=== PATIENT | male | born 1950 | race Caucasian/White ===

== ENCOUNTER 2016-05-22 09:16 | Inpatient (IN) | payer MEDICARE ==
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
[2016-05-22] MEDS ORDERED: Albuterol/Ipratropium Neb 3 ML AERS HHN ONE ×2 (09:58→10:12)
[2016-05-22 10:12] LABS: % BASOPHILS 1.3 % (0.0-2.0); % EOSINOPHILS 0.4 % (0.0-5.0); % LYMPHOCYTES 18.4 % (20.0-50.0); % MONOCYTES 7.9 % (2.0-10.0); HEMATOCRIT 38.4 % (39.0-49.0); HEMOGLOBIN 12.7 gm/dL (12.6-17.4); MEAN CELL VOLUME 83.8 fl (80-99); MEAN CORPUSCULAR HEMOGLOBIN 27.9 pg (27.0-31.0); MEAN CORPUSCULAR HGB CONC 33.2 pg (28.0-36.0); MEAN PLATELET VOLUME 7.9 fl; NEUTROPHILE ABSOLUTE 6.9 Th/cmm (1.8-8.0); PLATELET COUNT 269 Th/cmm (150-400); RED BLOOD COUNT 4.58 Mil/cmm (3.80-5.80); RED CELL DISTRIBUTION WIDTH 16.7 % (11.5-20.0); WHITE BLOOD COUNT 9.5 Th/cmm (4.8-10.8)
[2016-05-22 10:15] LABS: URINE BILIRUBIN SMALL (NEGATIVE); URINE BLOOD NEGATIVE (NEGATIVE); URINE COLOR YELLOW; URINE GLUCOSE (UA) NEGATIVE (NEGATIVE); URINE KETONE 15 mg/dL (NEGATIVE); URINE PROTEIN TRACE mg/dL (NEGATIVE)
[2016-05-22 10:19] LABS: URINE BACTERIA NONE SEEN /hpf (NONE SEEN); URINE EPITHELIAL CELLS OCCASIONAL /lpf (FEW); URINE HYALINE CAST 0-2 /lpf (0-2); URINE RBC NONE SEEN /hpf (0-5)
[2016-05-22 10:31] LABS: ALB/GLOB RATIO 1.3 (1.0-1.8); ALKALINE PHOSPHATASE 108 U/L (34-104); ANION GAP 15.2 (7.0-16.0); BUN - UREA NITROGEN 16 mg/dL (7-25); BUN/CREATININE RATIO 22.9; CALCIUM SERUM 9.6 mg/dL (8.6-10.3); CARBON DIOXIDE 24.7 mEq/L (21.0-31.0); CHLORIDE 88 mEq/L (98-107); CREATININE - SERUM 0.7 mg/dL (0.7-1.3); GLUCOSE 93 mg/dL (70-105); POTASSIUM SERUM 3.9 mEq/L (3.5-5.1); SGOT 222 U/L (13-39); SGPT/ALT 81 U/L (7-52); SODIUM SERUM 124 mEq/L (136-145)
[2016-05-22 10:36] LABS: AMPHETAMINE URINE NEGATIVE (NEGATIVE); BARBITURATES URINE NEGATIVE (NEGATIVE)
[2016-05-22] MEDS ORDERED: Sodium Chloride 0.9% 1,000 ML IV ONE (10:52)
--- NOTE | 2016-05-22 11:29 | Diagnostic Imaging Report ---
Portable chest x-ray HISTORY: Cough Allowing for portable technique, the heart size is normal. Numerous small calcified nodules are seen in the lungs consistent with old histoplasmosis. No acute pulmonary parenchymal processes. The hilar or mediastinal abnormalities. Chronic deformity and changes noted about the left humeral neck/head region. IMPRESSION: 1. No acute abnormalities 2. Multiple calcified bilateral pulmonary nodules consistent with old histoplasmosis.
[2016-05-22 18:10] VITALS: BP 125/67
[2016-05-22] MEDS ORDERED: Pneumococcal Vaccine 0.5 mL Vial IM ONE (18:41)
[2016-05-22] MEDS: Albuterol Nebulizer 2.5mg/3mL HHN SCH (19:34)
[2016-05-23] MEDS ORDERED: Promethazine DM 6.25/15mg-5mL 5 ML SYR PO PRN
[2016-05-23] MEDS: Albuterol Nebulizer 2.5mg/3mL HHN SCH ×4 (00:36→19:32)
--- NOTE | 2016-05-23 01:52 | Admit Criteria Form ---
Admit Criteria Forms - Admit Criteria Diagnosis: HYPONATREMIA; HYPERNATREMIA; HYPOKALEMIA; HYPERKALEMIA; HYPOCALCEMIA; HYPERCALCEMIA Clinical Indications for Inpatient Care (Place 'X' for any and all applicable criteria): Ongoing inpatient care may be indicated for ANY ONE of the following [G](1)(2)(3 )(5): [ X]I. Hyponatremia with ANY ONE of the following: [ X]a) Sodium less than 130 mEq/L (mmol/L) (new) (6)(22) [ ]b) Sodium less than 135 mEq/L (mmol/L) with ANY ONE of the following: [ ]i) Severe medical etiology requiring inpatient management (eg, heart failure, hypovolemia) [ ]ii) Altered mental status [ ]iii) Seizures [ ]II. Hypernatremia with ANY ONE of the following: [ ]a) Sodium greater than 155 mEq/L (mmol/L) [ ]b) Sodium greater than 150 mEq/L (mmol/L) with ANY ONE of the following: [ ] i) Altered mental status [ ]ii) Seizures [ ]iii) Severe medical etiology (eg, hypovolemia, diabetes insipidus) [ ]iv) Severe weakness [ ]v) Severe medical etiology (eg, hemolysis, infection, drug overdose) [ ]III. Hypokalemia with ANY ONE of the following: [ ]a) Potassium less than 2.5 mEq/L (mmol/L) despite outpatient and emergency treatment [ ]b) Potassium less than 3.0 mEq/L (mmol/L) with ANY ONE of the following: [ ]i) Weakness [ ]ii) Cardiac abnormality (eg, arrhythmia, conduction disturbance) [ ]iii) Cardiac ischemia [ ]iv) Ileus [ ]v) Ongoing medical cause requiring inpatient management. ( e.g., acute renal wasting, SIADH) [ ]vi) Other severe symptoms [ ] IV. Hyperkalemia with ANY ONE of the following: [ ]a) Potassium greater than 6.5 mEq/L (mmol/L) [ ]b) Potassium greater than 5 mEq/L (mmol/L) with ANY ONE of the following: [ ]i) Severe ECG findings [H] [ ]ii) Acute worsening of renal failure (creatinine greater than 2.5 mg/dL (221 micromoles/L) or significant elevation for age and size) [ ] V. Hypocalcemia with ANY ONE of the following: [ ]a) Calcium less than 7 mg/dL (1.75 mmol/L) despite outpatient and emergency treatment(19) [ ]b) Calcium less than 8 mg/dL (2 mmol/L) with significant symptoms or findings; examples include: [ ]i) Cardiac abnormality (eg, arrhythmia or conduction disturbance) [ ]ii) Altered mental status [ ]iii) Seizures [ ]iv) Breathing difficulty [ ]v) Muscle spasms [ ]. Hypercalcemia with ANY ONE of the following: [ ]a) Calcium greater than 14 mg/dL (3.5 mmol/L) [ ]b) Calcium greater than 12 mg/dL (3 mmol/L) with ANY ONE of the following: [ ]i) Significant dehydration or hypovolemia as indicated by ANY ONE of the following(2): [ ]1. Clinically significant dehydration as indicated by ANY ONE of the following: [ ]A. Acute loss of weight from baseline (5% of body weight in adults, 9% in pediatric patients) [ ]B. Hemodynamic instability [ ]C. Acute renal failure [ ]D. Serum sodium greater than 150 mEq/L (mmol/L) [ ]2) Dehydration that is persistent indicated by ALL of the following: [ ]A. Oral rehydration therapy not tolerated or insufficient to adequately correct dehydration [ ]B. Appropriate intravenous treatment (eg, fluids ) does not readily correct dehydration ie, after 12 to 24 hours of treatment) [ ]ii) Significant symptoms or findings; examples include: [ ]1) Altered mental status [ ]2) Cardiac abnormality (eg, arrhythmia, conduction disturbance) [ ]3) Cardiac abnormality (eg, arrhythmia, conduction disturbance) The original [facility] content created by [employer] has been revised. The portions of the content which have been revised are identified through the use of italic text or in bold, and [facility] has neither reviewed nor approved the modified material. All other unmodified content is copyright [facility] [employer] Please see references footnoted in the original [facility] edition 2016 Admit Criteria Met?: Yes
[2016-05-23 07:04] LABS: % BASOPHILS 0.4 % (0.0-2.0); % EOSINOPHILS 0.8 % (0.0-5.0); % MONOCYTES 9.6 % (2.0-10.0); % NEUTROPHILS 70.2 % (40.0-80.0); HEMOGLOBIN 11.2 gm/dL (12.6-17.4); MEAN CORPUSCULAR HEMOGLOBIN 28.1 pg (27.0-31.0); MEAN CORPUSCULAR HGB CONC 33.9 pg (28.0-36.0); NEUTROPHILE ABSOLUTE 4.6 Th/cmm (1.8-8.0); PLATELET COUNT 218 Th/cmm (150-400); RED BLOOD COUNT 3.98 Mil/cmm (3.80-5.80); RED CELL DISTRIBUTION WIDTH 17.3 % (11.5-20.0)
[2016-05-23 07:12] LABS: HEMATOCRIT 33.1 % (39.0-49.0); WHITE BLOOD COUNT 6.6 Th/cmm (4.8-10.8)
[2016-05-23 07:19] LABS: ALB/GLOB RATIO 1.3 (1.0-1.8); ALKALINE PHOSPHATASE 81 U/L (34-104); ANION GAP 10.2 (7.0-16.0); BILIRUBIN,TOTAL 0.6 mg/dL (0.3-1.0); BUN - UREA NITROGEN 15 mg/dL (7-25); BUN/CREATININE RATIO 16.7; CALCIUM SERUM 8.5 mg/dL (8.6-10.3); CARBON DIOXIDE 28.2 mEq/L (21.0-31.0); CHLORIDE 96 mEq/L (98-107); CREATININE - SERUM 0.9 mg/dL (0.7-1.3); GLUCOSE 105 mg/dL (70-105); POTASSIUM SERUM 3.4 mEq/L (3.5-5.1); SGOT 125 U/L (13-39); SGPT/ALT 57 U/L (7-52); SODIUM SERUM 131 mEq/L (136-145)
--- NOTE | 2016-05-23 08:40 | General Progress Note ---
Subjective - Review of Systems Service Date: 05/23/16 Subjective: Confused Objective - Results Result Diagrams: 05/23/16 06:28 05/23/16 06:28 Recent Labs: Laboratory Last Values WBC 6.6 Th/cmm (4.8-10.8) D 05/23/16 06:28 RBC 3.98 Mil/cmm (3.80-5.80) 05/23/16 06:28 Hgb 11.2 gm/dL (12.6-17.4) L 05/23/16 06:28 Hct 33.1 % (39.0-49.0) L D 05/23/16 06:28 MCV 83.0 fl (80-99) 05/23/16 06:28 MCH 28.1 pg (27.0-31.0) 05/23/16 06:28 MCHC Differential 33.9 pg (28.0-36.0) 05/23/16 06:28 RDW 17.3 % (11.5-20.0) 05/23/16 06:28 Plt Count 218 Th/cmm (150-400) 05/23/16 06:28 MPV 8.0 fl 05/23/16 06:28 Neutrophils % 70.2 % (40.0-80.0) 05/23/16 06:28 Lymphocytes % 19.0 % (20.0-50.0) L 05/23/16 06:28 Monocytes % 9.6 % (2.0-10.0) 05/23/16 06:28 Eosinophils % 0.8 % (0.0-5.0) 05/23/16 06:28 Basophils % 0.4 % (0.0-2.0) 05/23/16 06:28 Sodium 131 mEq/L (136-145) L 05/23/16 06:28 Potassium 3.4 mEq/L (3.5-5.1) L 05/23/16 06:28 Chloride 96 mEq/L (98-107) L 05/23/16 06:28 Carbon Dioxide 28.2 mEq/L (21.0-31.0) 05/23/16 06:28 Anion Gap 10.2 (7.0-16.0) 05/23/16 06:28 BUN 15 mg/dL (7-25) 05/23/16 06:28 Creatinine 0.9 mg/dL (0.7-1.3) 05/23/16 06:28 Est GFR ( Amer) > 60.0 ml/min (>90) 05/23/16 06:28 Est GFR (Non-Af Amer) > 60.0 ml/min 05/23/16 06:28 BUN/Creatinine Ratio 16.7 05/23/16 06:28 Glucose 105 mg/dL (70-105) 05/23/16 06:28 Calcium 8.5 mg/dL (8.6-10.3) L 05/23/16 06:28 Total Bilirubin 0.6 mg/dL (0.3-1.0) 05/23/16 06:28 AST 125 U/L (13-39) H 05/23/16 06:28 ALT 57 U/L (7-52) H 05/23/16 06:28 Alkaline Phosphatase 81 U/L (34-104) 05/23/16 06:28 Total Protein 6.0 gm/dL (6.0-8.3) 05/23/16 06:28 Albumin 3.4 gm/dL (4.2-5.5) L 05/23/16 06:28 Globulin 2.6 gm/dL 05/23/16 06:28 Albumin/Globulin Ratio 1.3 (1.0-1.8) 05/23/16 06:28 Urine Source RANDOM 05/22/16 10:00 Urine Color YELLOW 05/22/16 10:00 Urine Clarity SL. CLOUDY (CLEAR) 05/22/16 10:00 Urine pH 6.0 05/22/16 10:00 Ur Specific [place] 1.020 (1.005-1.030) 05/22/16 10:00 Urine Protein TRACE mg/dL (NEGATIVE) 05/22/16 10:00 Urine Glucose (UA) NEGATIVE mg/dL (NEGATIVE) 05/22/16 10:00 Urine Ketones 15 mg/dL (NEGATIVE) H 05/22/16 10:00 Urine Blood NEGATIVE (NEGATIVE) 05/22/16 10:00 Urine Nitrate NEGATIVE (NEGATIVE) 05/22/16 10:00 Urine Bilirubin SMALL (NEGATIVE) H 05/22/16 10:00 Urine Urobilinogen 2.0 E.U./dL (0.2 - 1.0) 05/22/16 10:00 Ur Leukocyte Esterase NEGATIVE (NEGATIVE) 05/22/16 10:00 Urine RBC NONE SEEN /hpf (0-5) 05/22/16 10:00 Urine WBC 2-5 /hpf (0-5) H 05/22/16 10:00 Ur Epithelial Cells OCCASIONAL /lpf (FEW) 05/22/16 10:00 Urine Bacteria NONE SEEN /hpf (NONE SEEN) 05/22/16 10:00 Hyaline Casts 0-2 /lpf (0-2) H 05/22/16 10:00 Urine Opiates Screen NEGATIVE (NEGATIVE) 05/22/16 10:00 Ur Barbiturates Screen NEGATIVE (NEGATIVE) 05/22/16 10:00 Ur Phencyclidine Scrn NEGATIVE (NEGATIVE) 05/22/16 10:00 Amphetamines Screen NEGATIVE (NEGATIVE) 05/22/16 10:00 U Methamphetamines Scrn NEGATIVE (NEGATIVE) 05/22/16 10:00 U Benzodiazepines Scrn NEGATIVE (NEGATIVE) 05/22/16 10:00 U Cocaine Metab Screen NEGATIVE (NEGATIVE) 05/22/16 10:00 U Cannabinoids Screen NEGATIVE (NEGATIVE) 05/22/16 10:00 Ethyl Alcohol < 10 mg/dL (0-10) 05/22/16 10:00 - Physical Exam Vitals and I&O: Vital Signs Temp 100.2 F 05/23/16 04:08 Pulse 72 05/23/16 06:49 Resp 20 05/23/16 06:49 BP 115/59 05/23/16 04:08 Pulse Ox 98 05/23/16 06:49 Intake & Output 05/22/16 05/23/16 05/23/16 18:59 06:59 18:59 Intake Total 1000 200 Output Total 500 Balance 1000 -300 Weight (lbs) 77.111 kg Intake: Intake, IV Amount 1000 Oral 200 Output: Urine 500 Other: # Voids 1 Active Medications: Current Medications Acetaminophen (Tylenol) 650 mg PO Q6H PRN PRN Reason: Pain or Fever >101 Stop: 07/21/16 16:09 Last Admin: 05/23/16 04:42 Dose: 650 mg Albuterol Sulfate (Albuterol 2.5mg/3ml Neb Ud) 2.5 mg HHN Q6HRT ARIES Stop: 07/21/16 18:59 Last Admin: 05/23/16 06:48 Dose: 2.5 mg Sodium Chloride (Nacl 0.9%) 1,000 mls @ 75 mls/hr IV .[id number] [facility] Stop: 07/21/16 16:14 Lorazepam (Ativan) 1 mg IVP Q8HR ARIES PRN Reason: Protocol Stop: 07/21/16 20:59 Last Admin: 05/23/16 04:29 Dose: 1 mg Ondansetron HCl (Zofran) 4 mg IV Q6H PRN PRN Reason: Nausea / Vomiting Stop: 07/21/16 16:09 Promethazine HCl/Dextromethorphan (Phenergan Dm 6.25/15mg-5 Ml) 5 ml PO Q6HR PRN PRN Reason: Chest Tightness Stop: 07/22/16 00:00 Sodium Chloride (Nacl Tab) 1 gm PO TID [facility] Stop: 07/21/16 20:59 Last Admin: 05/23/16 04:24 Dose: 1 gm General: Other (Sleeping but arousable, confused) HEENT: Atraumatic Neck: Supple Cardiovascular: Regular rate Lungs: Other (Rude respiration) Abdomen: Bowel sounds, Soft Extremities: Other (No edema) Neurological: Other (Unstable gait) Skin: Rash Psych/Mental Status: Other (Confused, not oriented) Assessment/Plan - Assessment Assessment: Patient is sleeping but arousable, confused. Dx: Hyponatremia, Possible alcohol withdrawn, COPD exacerbation. Today Na is better. - Plan Plan: Will continue same management.
[2016-05-23] MEDS ORDERED: VTE Chemical Prophylaxis Screen/Admission MC PRN (09:00)
--- NOTE | 2016-05-23 10:05 | Diagnostic Imaging Report ---
CHEST X-RAY: AP view INDICATION: pain COMPARISON: Chest x-ray 05/22/2016 FINDINGS: There is evidence of prior granulomatous disease. Chronic changes are seen with left basal atelectasis. No focal consolidation or pleural effusions. Heart size is borderline prominent. Atherosclerotic vascular disease is noted. IMPRESSION: Left basal atelectasis with no focal consolidation identified. Evidence of prior granulomatous disease Borderline cardiomegaly and atherosclerotic vascular disease.
--- NOTE | 2016-05-23 10:14 | History & Physical ---
CHIEF COMPLAINT: The patient was found unresponsive on the street. HISTORY OF PRESENT ILLNESS: This is a case of a 66-year-old white male who was brought by ambulance due to complaint and pain in blisters. He was found sleeping in the street. The patient referred that he is having blisters in the feet for few weeks with increasing pain. Due to patient was confused and not oriented, the patient was hospitalized to continue treatment. PAST MEDICAL HISTORY: The patient has past medical history of hypertension, diabetes mellitus, asthma, COPD and liver cirrhosis. SOCIAL HISTORY: The patient smokes and drinks. The patient denies use of drugs. The patient is homeless. PAST SURGICAL HISTORY: Unremarkable. MEDICATIONS: Reviewed. REVIEW OF SYSTEMS: LUNGS: The patient referred cough and occasional shortness of breath. HEART: The patient denies chest pain. ABDOMEN: Unremarkable. EXTREMITIES: The patient referred blisters in both feet with pain. NEUROLOGICAL: The patient is confused. PHYSICAL EXAMINATION: GENERAL: Does reveal fairly nourished and developed white male, awake, alert, confused, not oriented. The patient has poor hygiene. HEENT: Head is atraumatic, normocephalic. Eyes: Pupils reactive to light. Fundus not examined at this moment. Nose: No evidence of nasal obstruction. Ears: No evidence of any discharge. Mouth: The patient had multiple caries with poor hygiene. Mucosa is pink. LUNGS: Bilateral decreased air entry. No crackles or wheezing at this moment. HEART: Regular rhythm. ABDOMEN: Soft, nontender, bowel sound is present. EXTREMITIES: Full movement of all extremities. Mild edema of lower extremities. There is some ____ in both feet. NEUROLOGICAL: The patient is awake, alert, confused, not oriented, Neurological examination was not completed secondary to the patient's mental condition. IMPRESSION: 1. Hyponatremia. 2. Mild evaluation of liver enzymes. 3. Hypertension. 4. Diabetes mellitus. 5. Chronic obstructive pulmonary disease. 6. Liver cirrhosis. 7. Alcohol use, possible alcohol withdrawal. PLAN: 1. The patient will be admitted in medical surgical floor. 2. Banana bag. 3. Ativan IV. 4. DIET: Low in sodium and diabetic diet. 5. CBC, CMP, TSH at a.m. [facility]# [id number]
[2016-05-23] MEDS: Sodium Chloride 0.9% 1,000 ML IV SCH (21:21)
[2016-05-24] MEDS: Albuterol Nebulizer 2.5mg/3mL HHN SCH ×4 (01:25→19:18)
--- NOTE | 2016-05-24 05:32 | Consultation ---
PSYCHIATRIC CONSULTATION HISTORY OF PRESENT ILLNESS: The patient was seen, chart reviewed and discussed with staff. The patient is a 66-year-old male with a history of mental illness, alcoholism and chronic homeless, was admitted to the hospital with complaints of pain and blisters on his feet, was found sleeping on a street, has been walking at least for the past few days. He said he was trying to get a social security ____ here in [place] and he does not remember who long he has been walking for. The patient admits to history of mental illness and prior hospitalizations and he said he is anxious at times and he said he drinks a lot of alcohol. PAST PSYCHIATRIC HISTORY: The patient reports prior hospitalization in a psychiatric facility in [place] many years ago, could not recall much information. PAST MEDICAL HISTORY: COPD, liver cirrhosis, asthma, diabetes and hypertension. PSYCHOSOCIAL HISTORY: Chronic homeless. MENTAL STATUS EXAMINATION: The patient is disheveled, unkempt, appears to be older than his stated age. His affect is dysphoric and irritable. The patient appears to be somewhat guarded. The patient this time has some auditory hallucinations, hearing voices at times. The patient is oriented to person, knew he is in some kind of hospital, knew his age and knew his date of . The patient was uncooperative with the rest of the memory testing. ASSESSMENT: Major depressive disorder with psychosis, rule out schizoaffective disorder, alcohol dependence. PLAN: At this time, would recommend continuation of medical and supportive measures, add Neurontin 100 mg p.o. t.i.d., Seroquel 25 mg p.o. at bedtime, Seroquel to help with the hallucinations, sleep, monitor his vital signs closely, use Ativan p.r.n. to help with withdrawal symptoms and anxiety. We will follow closely while in the hospital. Thank you for the consultation. JOB# [id number]
--- NOTE | 2016-05-24 09:06 | General Progress Note ---
Subjective - Review of Systems Service Date: 05/24/16 Subjective: I am better Objective - Results Result Diagrams: 05/23/16 06:28 05/23/16 06:28 Recent Labs: Laboratory Last Values WBC 6.6 Th/cmm (4.8-10.8) D 05/23/16 06:28 RBC 3.98 Mil/cmm (3.80-5.80) 05/23/16 06:28 Hgb 11.2 gm/dL (12.6-17.4) L 05/23/16 06:28 Hct 33.1 % (39.0-49.0) L D 05/23/16 06:28 MCV 83.0 fl (80-99) 05/23/16 06:28 MCH 28.1 pg (27.0-31.0) 05/23/16 06:28 MCHC Differential 33.9 pg (28.0-36.0) 05/23/16 06:28 RDW 17.3 % (11.5-20.0) 05/23/16 06:28 Plt Count 218 Th/cmm (150-400) 05/23/16 06:28 MPV 8.0 fl 05/23/16 06:28 Neutrophils % 70.2 % (40.0-80.0) 05/23/16 06:28 Lymphocytes % 19.0 % (20.0-50.0) L 05/23/16 06:28 Monocytes % 9.6 % (2.0-10.0) 05/23/16 06:28 Eosinophils % 0.8 % (0.0-5.0) 05/23/16 06:28 Basophils % 0.4 % (0.0-2.0) 05/23/16 06:28 Sodium 131 mEq/L (136-145) L 05/23/16 06:28 Potassium 3.4 mEq/L (3.5-5.1) L 05/23/16 06:28 Chloride 96 mEq/L (98-107) L 05/23/16 06:28 Carbon Dioxide 28.2 mEq/L (21.0-31.0) 05/23/16 06:28 Anion Gap 10.2 (7.0-16.0) 05/23/16 06:28 BUN 15 mg/dL (7-25) 01/26/17 06:28 Creatinine 0.9 mg/dL (0.7-1.3) 05/23/16 06:28 Est GFR ( Amer) > 60.0 ml/min (>90) 05/23/16 06:28 Est GFR (Non-Af Amer) > 60.0 ml/min 05/23/16 06:28 BUN/Creatinine Ratio 16.7 05/23/16 06:28 Glucose 105 mg/dL (70-105) 05/23/16 06:28 Calcium 8.5 mg/dL (8.6-10.3) L 05/23/16 06:28 Total Bilirubin 0.6 mg/dL (0.3-1.0) 05/23/16 06:28 AST 125 U/L (13-39) H 05/23/16 06:28 ALT 57 U/L (7-52) H 05/23/16 06:28 Alkaline Phosphatase 81 U/L (34-104) 05/23/16 06:28 Total Protein 6.0 gm/dL (6.0-8.3) 05/23/16 06:28 Albumin 3.4 gm/dL (4.2-5.5) L 05/23/16 06:28 Globulin 2.6 gm/dL 05/23/16 06:28 Albumin/Globulin Ratio 1.3 (1.0-1.8) 05/23/16 06:28 Urine Source RANDOM 05/22/16 10:00 Urine Color YELLOW 05/22/16 10:00 Urine Clarity SL. CLOUDY (CLEAR) 05/22/16 10:00 Urine pH 6.0 05/22/16 10:00 Ur Specific [place] 1.020 (1.005-1.030) 05/22/16 10:00 Urine Protein TRACE mg/dL (NEGATIVE) 05/22/16 10:00 Urine Glucose (UA) NEGATIVE mg/dL (NEGATIVE) 05/22/16 10:00 Urine Ketones 15 mg/dL (NEGATIVE) H 05/22/16 10:00 Urine Blood NEGATIVE (NEGATIVE) 05/22/16 10:00 Urine Nitrate NEGATIVE (NEGATIVE) 05/22/16 10:00 Urine Bilirubin SMALL (NEGATIVE) H 05/22/16 10:00 Urine Urobilinogen 2.0 E.U./dL (0.2 - 1.0) 05/22/16 10:00 Ur Leukocyte Esterase NEGATIVE (NEGATIVE) 05/22/16 10:00 Urine RBC NONE SEEN /hpf (0-5) 05/22/16 10:00 Urine WBC 2-5 /hpf (0-5) H 05/22/16 10:00 Ur Epithelial Cells OCCASIONAL /lpf (FEW) 05/22/16 10:00 Urine Bacteria NONE SEEN /hpf (NONE SEEN) 05/22/16 10:00 Hyaline Casts 0-2 /lpf (0-2) H 05/22/16 10:00 Urine Opiates Screen NEGATIVE (NEGATIVE) 05/22/16 10:00 Ur Barbiturates Screen NEGATIVE (NEGATIVE) 05/22/16 10:00 Ur Phencyclidine Scrn NEGATIVE (NEGATIVE) 05/22/16 10:00 Amphetamines Screen NEGATIVE (NEGATIVE) 05/22/16 10:00 U Methamphetamines Scrn NEGATIVE (NEGATIVE) 05/22/16 10:00 U Benzodiazepines Scrn NEGATIVE (NEGATIVE) 05/22/16 10:00 U Cocaine Metab Screen NEGATIVE (NEGATIVE) 05/22/16 10:00 U Cannabinoids Screen NEGATIVE (NEGATIVE) 05/22/16 10:00 Ethyl Alcohol < 10 mg/dL (0-10) 05/22/16 10:00 Hep Bs Antibody, Quant <3.1 mIU/mL (Immunity>9.9) L 05/23/16 06:28 - Physical Exam Vitals and I&O: Vital Signs Temp 98 F 05/24/16 04:00 Pulse 84 05/24/16 04:00 Resp 18 05/24/16 04:00 BP 110/64 05/24/16 04:00 Pulse Ox 95 05/24/16 04:00 Intake & Output 05/23/16 05/24/16 05/24/16 18:59 06:59 18:59 Intake Total 500 1000 Output Total 600 Balance -100 1000 Intake: Oral 500 1000 Output: Urine 600 Other: Stool Characteristics Soft Soft Active Medications: Current Medications Acetaminophen (Tylenol) 650 mg PO Q6H PRN PRN Reason: Pain or Fever >101 Stop: 07/21/16 16:09 Last Admin: 05/23/16 21:26 Dose: 650 mg Albuterol Sulfate (Albuterol 2.5mg/3ml Neb Ud) 2.5 mg HHN Q6HRT [facility] Stop: 07/21/16 18:59 Last Admin: 05/24/16 07:11 Dose: 2.5 mg Gabapentin (Neurontin) 100 mg PO TID [facility] Stop: 07/22/16 13:59 Last Admin: 05/24/16 08:46 Dose: 100 mg Heparin Sodium (Porcine) (Heparin) 5,000 units SUBQ Q12HR [facility] Stop: 07/22/16 08:59 Last Admin: 05/24/16 08:46 Dose: 5,000 units Sodium Chloride (Nacl 0.9%) 1,000 mls @ 75 mls/hr IV .[id number] [facility] Stop: 07/21/16 16:14 Last Admin: 05/23/16 21:21 Dose: 75 mls/hr Lorazepam (Ativan) 1 mg IVP Q8HR [facility] PRN Reason: Protocol Stop: 07/21/16 20:59 Last Admin: 05/24/16 05:39 Dose: 1 mg Miscellaneous (Vte Chemical Prophylaxis Screen/ Admission) 1 ea [facility] PRN PRN PRN Reason: PROTOCOL Stop: 07/22/16 08:59 Ondansetron HCl (Zofran) 4 mg IV Q6H PRN PRN Reason: Nausea / Vomiting Stop: 07/21/16 16:09 Promethazine HCl/Dextromethorphan (Phenergan Dm 6.25/15mg-5 Ml) 5 ml PO Q6HR PRN PRN Reason: Chest Tightness Stop: 07/22/16 00:00 Quetiapine Fumarate (Seroquel) 25 mg PO HS [facility] PRN Reason: Protocol Stop: 07/22/16 20:59 Last Admin: 05/23/16 21:27 Dose: 25 mg Sodium Chloride (Nacl Tab) 1 gm PO TID [facility] Stop: 07/21/16 20:59 Last Admin: 05/24/16 08:46 Dose: 1 gm General: Alert, Other (Some confusion) HEENT: Atraumatic Neck: Supple Cardiovascular: Regular rate Lungs: Clear to auscultation Abdomen: Bowel sounds, Soft Extremities: Other (No edema) Neurological: Normal gait Skin: Other (Warm and dry) Psych/Mental Status: Other (Confused) Assessment/Plan - Assessment Assessment: Patient is sleeping but arousable, confused. Dx: Hyponatremia, alcohol withdrawn, COPD exacerbation, schizophrenia. No fever. Alraedy seen by Psychiatry - Plan Plan: Will continue same management.
[2016-05-24 12:05] LABS: % BASOPHILS 0.4 % (0.0-2.0); % EOSINOPHILS 2.2 % (0.0-5.0); % LYMPHOCYTES 28.3 % (20.0-50.0); % MONOCYTES 7.4 % (2.0-10.0); % NEUTROPHILS 61.7 % (40.0-80.0); HEMATOCRIT 32.8 % (39.0-49.0); HEMOGLOBIN 11.2 gm/dL (12.6-17.4); MEAN CELL VOLUME 84.3 fl (80-99); MEAN CORPUSCULAR HEMOGLOBIN 28.7 pg (27.0-31.0); MEAN PLATELET VOLUME 7.4 fl; NEUTROPHILE ABSOLUTE 3.2 Th/cmm (1.8-8.0); PLATELET COUNT 200 Th/cmm (150-400); RED BLOOD COUNT 3.89 Mil/cmm (3.80-5.80); RED CELL DISTRIBUTION WIDTH 17.6 % (11.5-20.0)
[2016-05-24 12:10] LABS: WHITE BLOOD COUNT 5.1 Th/cmm (4.8-10.8)
[2016-05-24 12:24] LABS: ALB/GLOB RATIO 1.2 (1.0-1.8); ALKALINE PHOSPHATASE 68 U/L (34-104); ANION GAP 5.3 (7.0-16.0); BILIRUBIN,TOTAL 0.4 mg/dL (0.3-1.0); BUN - UREA NITROGEN 9 mg/dL (7-25); CALCIUM SERUM 8.7 mg/dL (8.6-10.3); CARBON DIOXIDE 28.3 mEq/L (21.0-31.0); CHLORIDE 103 mEq/L (98-107); CREATININE - SERUM 0.6 mg/dL (0.7-1.3); GLUCOSE 145 mg/dL (70-105); POTASSIUM SERUM 3.6 mEq/L (3.5-5.1); SGOT 63 U/L (13-39); SGPT/ALT 42 U/L (7-52); SODIUM SERUM 133 mEq/L (136-145)
--- NOTE | 2016-05-24 13:28 | Diagnostic Imaging Report ---
Ultrasound abdomen HISTORY: Abnormal liver function tests COMPARISON: None Technique: Sonography of the abdomen was performed in multiple planes. FINDINGS: The liver demonstrates mild increased echogenicity measures 20.4 cm. No evidence of focal lesions. No evidence of gallstones or gallbladder wall thickening. The common bile duct measures 4 mm. Evaluation of the pancreas is limited due to bowel gas. The right kidney measures 11.8 cm. The left kidney measures 10.6 cm. The renal margins are not well-defined, however, no evidence of focal lesions or hydronephrosis. The spleen measures 11.9 cm. The visualized portions of the abdominal aorta within normal limits in size. IMPRESSION: Hepatomegaly with mild increased echogenicity which may reflect underlying hepatocellular disease, correlate clinically. No evidence of gallstones Spleen at upper limits of normal in size.
[2016-05-25] MEDS: Albuterol Nebulizer 2.5mg/3mL HHN SCH ×4 (01:01→19:48)
[2016-05-25] MEDS: Sodium Chloride 0.9% 1,000 ML IV SCH ×5 (01:57→17:30)
[2016-05-25 06:59] LABS: % BASOPHILS 0.3 % (0.0-2.0); % EOSINOPHILS 4.3 % (0.0-5.0); % LYMPHOCYTES 30.5 % (20.0-50.0); % MONOCYTES 10.1 % (2.0-10.0); % NEUTROPHILS 54.8 % (40.0-80.0); HEMATOCRIT 33.3 % (39.0-49.0); HEMOGLOBIN 11.6 gm/dL (12.6-17.4); MEAN CELL VOLUME 84.1 fl (80-99); MEAN CORPUSCULAR HEMOGLOBIN 29.1 pg (27.0-31.0); MEAN CORPUSCULAR HGB CONC 34.7 pg (28.0-36.0); MEAN PLATELET VOLUME 7.2 fl; NEUTROPHILE ABSOLUTE 3.1 Th/cmm (1.8-8.0); PLATELET COUNT 211 Th/cmm (150-400); RED BLOOD COUNT 3.96 Mil/cmm (3.80-5.80); RED CELL DISTRIBUTION WIDTH 17.8 % (11.5-20.0); WHITE BLOOD COUNT 5.4 Th/cmm (4.8-10.8)
[2016-05-25 07:30] LABS: ALB/GLOB RATIO 1.2 (1.0-1.8); ALKALINE PHOSPHATASE 66 U/L (34-104); ANION GAP 8.7 (7.0-16.0); BILIRUBIN,TOTAL 0.5 mg/dL (0.3-1.0); BUN - UREA NITROGEN 7 mg/dL (7-25); BUN/CREATININE RATIO 11.7; CALCIUM SERUM 8.7 mg/dL (8.6-10.3); CARBON DIOXIDE 27.1 mEq/L (21.0-31.0); CHLORIDE 102 mEq/L (98-107); CREATININE - SERUM 0.6 mg/dL (0.7-1.3); GLUCOSE 94 mg/dL (70-105); POTASSIUM SERUM 3.8 mEq/L (3.5-5.1); SGOT 49 U/L (13-39); SGPT/ALT 37 U/L (7-52); SODIUM SERUM 134 mEq/L (136-145)
--- NOTE | 2016-05-25 09:04 | General Progress Note ---
Subjective - Review of Systems Service Date: 05/25/16 Subjective: I am better Objective - Results Result Diagrams: 05/25/16 06:40 05/25/16 06:40 Recent Labs: Laboratory Last Values WBC 5.4 Th/cmm (4.8-10.8) 05/25/16 06:40 RBC 3.96 Mil/cmm (3.80-5.80) 05/25/16 06:40 Hgb 11.6 gm/dL (12.6-17.4) L 05/25/16 06:40 Hct 33.3 % (39.0-49.0) L 05/25/16 06:40 MCV 84.1 fl (80-99) 05/25/16 06:40 MCH 29.1 pg (27.0-31.0) 05/25/16 06:40 MCHC Differential 34.7 pg (28.0-36.0) 05/25/16 06:40 RDW 17.8 % (11.5-20.0) 05/25/16 06:40 Plt Count 211 Th/cmm (150-400) 05/25/16 06:40 MPV 7.2 fl 05/25/16 06:40 Neutrophils % 54.8 % (40.0-80.0) 05/25/16 06:40 Lymphocytes % 30.5 % (20.0-50.0) 05/25/16 06:40 Monocytes % 10.1 % (2.0-10.0) H 05/25/16 06:40 Eosinophils % 4.3 % (0.0-5.0) 05/25/16 06:40 Basophils % 0.3 % (0.0-2.0) 05/25/16 06:40 Sodium 134 mEq/L (136-145) L 05/25/16 06:40 Potassium 3.8 mEq/L (3.5-5.1) 05/25/16 06:40 Chloride 102 mEq/L (98-107) 05/25/16 06:40 Carbon Dioxide 27.1 mEq/L (21.0-31.0) 05/25/16 06:40 Anion Gap 8.7 (7.0-16.0) 05/25/16 06:40 BUN 7 mg/dL (7-25) 05/25/16 06:40 Creatinine 0.6 mg/dL (0.7-1.3) L 05/25/16 06:40 Est GFR ( Amer) > 60.0 ml/min (>90) 05/25/16 06:40 Est GFR (Non-Af Amer) > 60.0 ml/min 05/25/16 06:40 BUN/Creatinine Ratio 11.7 05/25/16 06:40 Glucose 94 mg/dL (70-105) 05/25/16 06:40 Calcium 8.7 mg/dL (8.6-10.3) 05/25/16 06:40 Total Bilirubin 0.5 mg/dL (0.3-1.0) 05/25/16 06:40 AST 49 U/L (13-39) H 05/25/16 06:40 ALT 37 U/L (7-52) 05/25/16 06:40 Alkaline Phosphatase 66 U/L (34-104) 05/25/16 06:40 Total Protein 6.0 gm/dL (6.0-8.3) 05/25/16 06:40 Albumin 3.3 gm/dL (4.2-5.5) L 05/25/16 06:40 Globulin 2.7 gm/dL 05/25/16 06:40 Albumin/Globulin Ratio 1.2 (1.0-1.8) 05/25/16 06:40 Urine Source RANDOM 05/22/16 10:00 Urine Color YELLOW 05/22/16 10:00 Urine Clarity SL. CLOUDY (CLEAR) 05/22/16 10:00 Urine pH 6.0 05/22/16 10:00 Ur Specific [place] 1.020 (1.005-1.030) 05/22/16 10:00 Urine Protein TRACE mg/dL (NEGATIVE) 05/22/16 10:00 Urine Glucose (UA) NEGATIVE mg/dL (NEGATIVE) 05/22/16 10:00 Urine Ketones 15 mg/dL (NEGATIVE) H 05/22/16 10:00 Urine Blood NEGATIVE (NEGATIVE) 05/22/16 10:00 Urine Nitrate NEGATIVE (NEGATIVE) 05/22/16 10:00 Urine Bilirubin SMALL (NEGATIVE) H 05/22/16 10:00 Urine Urobilinogen 2.0 E.U./dL (0.2 - 1.0) 05/22/16 10:00 Ur Leukocyte Esterase NEGATIVE (NEGATIVE) 05/22/16 10:00 Urine RBC NONE SEEN /hpf (0-5) 05/22/16 10:00 Urine WBC 2-5 /hpf (0-5) H 05/22/16 10:00 Ur Epithelial Cells OCCASIONAL /lpf (FEW) 05/22/16 10:00 Urine Bacteria NONE SEEN /hpf (NONE SEEN) 05/22/16 10:00 Hyaline Casts 0-2 /lpf (0-2) H 05/22/16 10:00 Urine Opiates Screen NEGATIVE (NEGATIVE) 05/22/16 10:00 Ur Barbiturates Screen NEGATIVE (NEGATIVE) 05/22/16 10:00 Ur Phencyclidine Scrn NEGATIVE (NEGATIVE) 05/22/16 10:00 Amphetamines Screen NEGATIVE (NEGATIVE) 05/22/16 10:00 U Methamphetamines Scrn NEGATIVE (NEGATIVE) 05/22/16 10:00 U Benzodiazepines Scrn NEGATIVE (NEGATIVE) 05/22/16 10:00 U Cocaine Metab Screen NEGATIVE (NEGATIVE) 05/22/16 10:00 U Cannabinoids Screen NEGATIVE (NEGATIVE) 05/22/16 10:00 Ethyl Alcohol < 10 mg/dL (0-10) 05/22/16 10:00 Hep Bs Antibody, Quant <3.1 mIU/mL (Immunity>9.9) L 05/23/16 06:28 Hepatitis C Antibody <0.1 s/co ratio (0.0-0.9) 05/23/16 06:28 - Physical Exam Vitals and I&O: Vital Signs Temp 99.0 F 05/25/16 04:00 Pulse 81 05/25/16 07:15 Resp 16 05/25/16 07:15 BP 120/76 05/25/16 04:00 Pulse Ox 95 05/25/16 07:15 Intake & Output 05/24/16 05/25/16 05/25/16 18:59 06:59 18:59 Intake Total 1500 420 Balance 1500 420 Weight (lbs) 81.193 kg Intake: Intake, IV Amount 1000 Sodium Chloride 0.9% 1, 1000 000 ml @ 75 mls/hr IV . [id number] [facility] Rx#:[id number] Oral 500 420 Other: # Voids 2 3 # Bowel Movements 0 Active Medications: Current Medications Acetaminophen (Tylenol) 650 mg PO Q6H PRN PRN Reason: Pain or Fever >101 Stop: 07/21/16 16:09 Last Admin: 05/24/16 14:08 Dose: 650 mg Albuterol Sulfate (Albuterol 2.5mg/3ml Neb Ud) 2.5 mg HHN Q6HRT [facility] Stop: 07/21/16 18:59 Last Admin: 05/25/16 07:15 Dose: 2.5 mg Gabapentin (Neurontin) 100 mg PO TID [facility] Stop: 07/22/16 13:59 Last Admin: 05/24/16 21:11 Dose: 100 mg Heparin Sodium (Porcine) (Heparin) 5,000 units SUBQ Q12HR [facility] Stop: 07/22/16 08:59 Last Admin: 05/24/16 21:11 Dose: 5,000 units Sodium Chloride (Nacl 0.9%) 1,000 mls @ 75 mls/hr IV .[id number] [facility] Stop: 07/21/16 16:14 Last Admin: 05/25/16 01:57 Dose: 75 mls/hr Lorazepam (Ativan) 1 mg IVP Q8HR [facility] PRN Reason: Protocol Stop: 07/21/16 20:59 Last Admin: 05/25/16 05:00 Dose: Not Given Miscellaneous (Vte Chemical Prophylaxis Screen/ Admission) 1 ea [facility] PRN PRN PRN Reason: PROTOCOL Stop: 07/22/16 08:59 Ondansetron HCl (Zofran) 4 mg IV Q6H PRN PRN Reason: Nausea / Vomiting Stop: 07/21/16 16:09 Promethazine HCl/Dextromethorphan (Phenergan Dm 6.25/15mg-5 Ml) 5 ml PO Q6HR PRN PRN Reason: Chest Tightness Stop: 07/22/16 00:00 Quetiapine Fumarate (Seroquel) 25 mg PO HS [facility] PRN Reason: Protocol Stop: 07/22/16 20:59 Last Admin: 05/24/16 21:11 Dose: 25 mg Sodium Chloride (Nacl Tab) 1 gm PO TID [facility] Stop: 07/21/16 20:59 Last Admin: 05/24/16 21:11 Dose: 1 gm General: Alert, Other (Some confusion) HEENT: Atraumatic Neck: Supple Cardiovascular: Regular rate Lungs: Clear to auscultation Abdomen: Bowel sounds, Soft Extremities: Other (No edema) Neurological: Normal gait Skin: Other (Warm and dry) Psych/Mental Status: Other (Confused) Assessment/Plan - Assessment Assessment: Patient is sleeping but arousable, confused. Dx: Hyponatremia, alcohol withdrawn, COPD exacerbation, schizophrenia. No fever. Alraedy seen by Psychiatry. Na improving. - Plan Plan: Will continue same management. Awaiting placement.
[2016-05-26] MEDS: Albuterol Nebulizer 2.5mg/3mL HHN SCH ×4 (00:19→19:40)
[2016-05-26 07:07] LABS: % BASOPHILS 0.4 % (0.0-2.0); % EOSINOPHILS 4.2 % (0.0-5.0); % LYMPHOCYTES 23.8 % (20.0-50.0); % MONOCYTES 8.7 % (2.0-10.0); % NEUTROPHILS 62.9 % (40.0-80.0); HEMATOCRIT 35.1 % (39.0-49.0); HEMOGLOBIN 11.8 gm/dL (12.6-17.4); MEAN CELL VOLUME 85.1 fl (80-99); MEAN CORPUSCULAR HEMOGLOBIN 28.7 pg (27.0-31.0); MEAN CORPUSCULAR HGB CONC 33.8 pg (28.0-36.0); MEAN PLATELET VOLUME 7.4 fl; NEUTROPHILE ABSOLUTE 3.7 Th/cmm (1.8-8.0); PLATELET COUNT 219 Th/cmm (150-400); RED BLOOD COUNT 4.12 Mil/cmm (3.80-5.80); RED CELL DISTRIBUTION WIDTH 17.3 % (11.5-20.0); WHITE BLOOD COUNT 5.8 Th/cmm (4.8-10.8)
[2016-05-26 07:35] LABS: ALB/GLOB RATIO 1.3 (1.0-1.8); ALKALINE PHOSPHATASE 64 U/L (34-104); ANION GAP 10.2 (7.0-16.0); BILIRUBIN,TOTAL 0.5 mg/dL (0.3-1.0); BUN - UREA NITROGEN 9 mg/dL (7-25); CARBON DIOXIDE 24.8 mEq/L (21.0-31.0); CHLORIDE 103 mEq/L (98-107); CREATININE - SERUM 0.6 mg/dL (0.7-1.3); GLUCOSE 102 mg/dL (70-105); SGOT 37 U/L (13-39); SGPT/ALT 31 U/L (7-52); SODIUM SERUM 134 mEq/L (136-145)
--- NOTE | 2016-05-26 08:43 | General Progress Note ---
Subjective - Review of Systems Service Date: 05/26/16 Subjective: I am better Objective - Results Result Diagrams: 05/26/16 06:40 05/26/16 06:40 Recent Labs: Laboratory Last Values WBC 5.8 Th/cmm (4.8-10.8) 05/26/16 06:40 RBC 4.12 Mil/cmm (3.80-5.80) 05/26/16 06:40 Hgb 11.8 gm/dL (12.6-17.4) L 05/26/16 06:40 Hct 35.1 % (39.0-49.0) L 05/26/16 06:40 MCV 85.1 fl (80-99) 05/26/16 06:40 MCH 28.7 pg (27.0-31.0) 05/26/16 06:40 MCHC Differential 33.8 pg (28.0-36.0) 05/26/16 06:40 RDW 17.3 % (11.5-20.0) 05/26/16 06:40 Plt Count 219 Th/cmm (150-400) 05/26/16 06:40 MPV 7.4 fl 05/26/16 06:40 Neutrophils % 62.9 % (40.0-80.0) 05/26/16 06:40 Lymphocytes % 23.8 % (20.0-50.0) 05/26/16 06:40 Monocytes % 8.7 % (2.0-10.0) 05/26/16 06:40 Eosinophils % 4.2 % (0.0-5.0) 05/26/16 06:40 Basophils % 0.4 % (0.0-2.0) 05/26/16 06:40 Sodium 134 mEq/L (136-145) L 05/26/16 06:40 Potassium 4.0 mEq/L (3.5-5.1) 05/26/16 06:40 Chloride 103 mEq/L (98-107) 05/26/16 06:40 Carbon Dioxide 24.8 mEq/L (21.0-31.0) 05/26/16 06:40 Anion Gap 10.2 (7.0-16.0) 05/26/16 06:40 BUN 9 mg/dL (7-25) 05/26/16 06:40 Creatinine 0.6 mg/dL (0.7-1.3) L 05/26/16 06:40 Est GFR ( Amer) > 60.0 ml/min (>90) 05/26/16 06:40 Est GFR (Non-Af Amer) > 60.0 ml/min 05/26/16 06:40 BUN/Creatinine Ratio 15.0 05/26/16 06:40 Glucose 102 mg/dL (70-105) 05/26/16 06:40 Calcium 9.0 mg/dL (8.6-10.3) 05/26/16 06:40 Total Bilirubin 0.5 mg/dL (0.3-1.0) 05/26/16 06:40 AST 37 U/L (13-39) 05/26/16 06:40 ALT 31 U/L (7-52) 05/26/16 06:40 Alkaline Phosphatase 64 U/L (34-104) 05/26/16 06:40 Total Protein 6.2 gm/dL (6.0-8.3) 05/26/16 06:40 Albumin 3.5 gm/dL (4.2-5.5) L 05/26/16 06:40 Globulin 2.7 gm/dL 05/26/16 06:40 Albumin/Globulin Ratio 1.3 (1.0-1.8) 05/26/16 06:40 Urine Source RANDOM 05/22/16 10:00 Urine Color YELLOW 05/22/16 10:00 Urine Clarity SL. CLOUDY (CLEAR) 05/22/16 10:00 Urine pH 6.0 05/22/16 10:00 Ur Specific [place] 1.020 (1.005-1.030) 05/22/16 10:00 Urine Protein TRACE mg/dL (NEGATIVE) 05/22/16 10:00 Urine Glucose (UA) NEGATIVE mg/dL (NEGATIVE) 05/22/16 10:00 Urine Ketones 15 mg/dL (NEGATIVE) H 05/22/16 10:00 Urine Blood NEGATIVE (NEGATIVE) 05/22/16 10:00 Urine Nitrate NEGATIVE (NEGATIVE) 05/22/16 10:00 Urine Bilirubin SMALL (NEGATIVE) H 05/22/16 10:00 Urine Urobilinogen 2.0 E.U./dL (0.2 - 1.0) 05/22/16 10:00 Ur Leukocyte Esterase NEGATIVE (NEGATIVE) 05/22/16 10:00 Urine RBC NONE SEEN /hpf (0-5) 05/22/16 10:00 Urine WBC 2-5 /hpf (0-5) H 05/22/16 10:00 Ur Epithelial Cells OCCASIONAL /lpf (FEW) 05/22/16 10:00 Urine Bacteria NONE SEEN /hpf (NONE SEEN) 05/22/16 10:00 Hyaline Casts 0-2 /lpf (0-2) H 05/22/16 10:00 Urine Opiates Screen NEGATIVE (NEGATIVE) 05/22/16 10:00 Ur Barbiturates Screen NEGATIVE (NEGATIVE) 05/22/16 10:00 Ur Phencyclidine Scrn NEGATIVE (NEGATIVE) 05/22/16 10:00 Amphetamines Screen NEGATIVE (NEGATIVE) 05/22/16 10:00 U Methamphetamines Scrn NEGATIVE (NEGATIVE) 05/22/16 10:00 U Benzodiazepines Scrn NEGATIVE (NEGATIVE) 05/22/16 10:00 U Cocaine Metab Screen NEGATIVE (NEGATIVE) 05/22/16 10:00 U Cannabinoids Screen NEGATIVE (NEGATIVE) 05/22/16 10:00 Ethyl Alcohol < 10 mg/dL (0-10) 05/22/16 10:00 Hep Bs Antibody, Quant <3.1 mIU/mL (Immunity>9.9) L 05/23/16 06:28 Hepatitis C Antibody <0.1 s/co ratio (0.0-0.9) 05/23/16 06:28 - Physical Exam Vitals and I&O: Vital Signs Temp 98.4 F 05/26/16 07:41 Pulse 76 05/26/16 07:41 Resp 17 05/26/16 07:41 BP 117/56 05/26/16 07:41 Pulse Ox 99 05/26/16 07:41 Intake & Output 05/25/16 05/26/16 05/26/16 18:59 06:59 18:59 Intake Total 1000 Output Total 600 Balance 1000 -600 Intake: Intake, IV Amount 1000 Sodium Chloride 0.9% 1, 1000 000 ml @ 75 mls/hr IV . [id number] [facility] Rx#:[id number] Output: Urine 600 Active Medications: Current Medications Acetaminophen (Tylenol) 650 mg PO Q6H PRN PRN Reason: Pain or Fever >101 Stop: 07/21/16 16:09 Last Admin: 05/26/16 06:48 Dose: 650 mg Albuterol Sulfate (Albuterol 2.5mg/3ml Neb Ud) 2.5 mg HHN Q6HRT [facility] Stop: 07/21/16 18:59 Last Admin: 05/26/16 07:07 Dose: 2.5 mg Gabapentin (Neurontin) 100 mg PO TID [facility] Stop: 07/22/16 13:59 Last Admin: 05/25/16 20:45 Dose: 100 mg Heparin Sodium (Porcine) (Heparin) 5,000 units SUBQ Q12HR [facility] Stop: 07/22/16 08:59 Last Admin: 05/25/16 20:46 Dose: 5,000 units Sodium Chloride (Nacl 0.9%) 1,000 mls @ 75 mls/hr IV .[id number] [facility] Stop: 07/21/16 16:14 Last Admin: 05/25/16 17:30 Dose: 75 mls/hr Lorazepam (Ativan) 1 mg IVP Q8HR [facility] PRN Reason: Protocol Stop: 07/21/16 20:59 Last Admin: 05/26/16 05:56 Dose: 1 mg Miscellaneous (Vte Chemical Prophylaxis Screen/ Admission) 1 ea [facility] PRN PRN PRN Reason: PROTOCOL Stop: 07/22/16 08:59 Ondansetron HCl (Zofran) 4 mg IV Q6H PRN PRN Reason: Nausea / Vomiting Stop: 07/21/16 16:09 Promethazine HCl/Dextromethorphan (Phenergan Dm 6.25/15mg-5 Ml) 5 ml PO Q6HR PRN PRN Reason: Chest Tightness Stop: 07/22/16 00:00 Quetiapine Fumarate (Seroquel) 25 mg PO HS [facility] PRN Reason: Protocol Stop: 07/22/16 20:59 Last Admin: 05/25/16 20:46 Dose: 25 mg Sodium Chloride (Nacl Tab) 1 gm PO TID [facility] Stop: 07/21/16 20:59 Last Admin: 05/25/16 20:46 Dose: 1 gm General: Alert, Moderate distress, Other (Confused) Neck: Supple Cardiovascular: Regular rate Lungs: Clear to auscultation Abdomen: Bowel sounds, Soft Extremities: Other (No edema) Neurological: Normal gait Skin: Other (Warm and dry) Psych/Mental Status: Other (Confused) Assessment/Plan - Assessment Assessment: Patient is sleeping but arousable, confused. Dx: Hyponatremia, alcohol withdrawn, COPD exacerbation, schizophrenia. No fever. Alraedy seen by Psychiatry. Na improving. - Plan Plan: Will continue same management. Awaiting placement.
[2016-05-26] MEDS: Sodium Chloride 0.9% 1,000 ML IV SCH (08:44)
[2016-05-27] MEDS: Albuterol Nebulizer 2.5mg/3mL HHN SCH ×3 (00:44→12:21)
--- NOTE | 2016-06-07 21:11 | Discharge Summary ---
CHIEF COMPLAINT: The patient was found in the street unresponsive. HISTORY OF PRESENT ILLNESS: This is the case of a 66-year-old white male who was brought by ambulance to ER. The patient was found to sleeping in the street. The patient referred that he had bilateral blister in both feet and increase in pain. Because the patient was confused, the patient was hospitalized for treatment. HOSPITAL COURSE AND TREATMENT: This patient was admitted on the medical/surgical floor. He was started on IV normal saline, water restriction, salt tablet, and received p.o. antibiotics for his blister in the feet. Consult with Psychiatry was done and recommendations were followed. When this treatment and after few days in the hospital, it was considered that the patient received the maximum benefits and he could be sent to a board and care to continue treatment with primary care physician. On the day of the discharge, the patient was awake, alert, and in no acute distress. CONSULT DONE IN THIS CASE: Psychiatry. DISPOSITION: The patient is sent to a board and care. IMPRESSION: 1. Hyponatremia. 2. ____ elevated liver enzymes. 3. Hypertension. 4. Diabetes mellitus. 5. Chronic obstructive pulmonary disease. 6. Cirrhosis. JOB# [id number]
== END 2016-05-27 14:20 | DRG 191 ==
LOC: ER 09:16 → MSI 13:20
PROVIDERS: ADMIT General Practice; ATTEND General Practice
DX: J44.1 Chronic obstructive pulmonary disease with (acute) exacerbation (principal); E87.1 Hypo-osmolality and hyponatremia; F32.3 Major depressive disorder, single episode, severe with psychotic features; K74.60 Unspecified cirrhosis of liver; F10.239 Alcohol dependence with withdrawal, unspecified; I10 Essential (primary) hypertension; E11.9 Type 2 diabetes mellitus without complications; F17.210 Nicotine dependence, cigarettes, uncomplicated; I25.10 Atherosclerotic heart disease of native coronary artery without angina pectoris; J45.909 Unspecified asthma, uncomplicated; Z59.0 Homelessness
CPT/HCPCS: 36415-UA; 71010-TC; 76700-TC; 80053-TC; 80320-TC; 81001-TC; 85025-TC; 86706-90; 86803-90; 93005; 94640; 94760; 96374; J0696; J1644; J2060; J7030; J7042; J7613; X3904; Z7610